=== PATIENT | male | born 1970 | race Caucasian/White ===

== ENCOUNTER 2017-06-06 02:19 | Emergency (ER) | payer MEDICAID ==
[~2017-06-06] VITALS: Ht 177.8 cm; Wt 77.1 kg
[2017-06-06 02:39] VITALS: BP 152/91
[2017-06-06 02:45] LABS: Urine WBC None Seen /hpf (0 - 3)
[2017-06-06 02:59] LABS: Urine Bacteria NONE SEEN /hpf (None Seen); Urine Blood Negative /uL (Negative); Urine Mucus FEW (None Seen); Urine Specific Gravity 1.026 (1.001-1.035)
== END 2017-06-06 03:55 | disposition home or self-care (01) ==
LOC: ER 02:25
DX: S30.812A Abrasion of penis, initial encounter (principal); L08.9 Local infection of the skin and subcutaneous tissue, unspecified; X58.XXXA Exposure to other specified factors, initial encounter; Y93.89 Activity, other specified; Y99.8 Other external cause status; Y92.89 Other specified places as the place of occurrence of the external cause
CPT/HCPCS: 81001

== ENCOUNTER 2017-10-31 23:04 | Emergency (ER) | payer MEDICAID ==
[~2017-10-31] VITALS: Ht 177.8 cm; Wt 80.7 kg
[2017-10-31 23:12] VITALS: BP 117/70
== END 2017-11-01 03:30 | disposition home or self-care (01) ==
LOC: ER 23:14
DX: L02.11 Cutaneous abscess of neck (principal)